=== PATIENT | male | born 1935 | race Hispanic/Latino ===

== ENCOUNTER → 2018-09-26 | Day surgery (SDC) | payer MEDICARE ==
[2018-09-22 12:03] LABS: BASOPHILS % 0.2 % (0.0-1.0); EOSINOPHILS # (AUTO) 0.1 (0.0-0.4); EOSINOPHILS % 1.4 % (0.0-6.0); HEMATOCRIT 37.1 % (38.2-49.6); HEMOGLOBIN 12.5 g/dL (14.0-18.0); LYMPHOCYTES # (AUTO) 1.6 (1.0-3.2); LYMPHOCYTES % 28.9 % (18.0-39.1); MEAN CORPUSCULAR HEMOGLOBIN 28.9 pg (28-32); MEAN CORPUSCULAR HGB CONC 33.7 g/dL (31-35); MEAN CORPUSCULAR VOLUME 85.9 fL (81-99); MONOCYTES # (AUTO) 0.4 (0.2-0.8); MONOCYTES % 7.8 % (4.4-11.3); NEUTROPHILS # (AUTO) 3.4 (2.1-6.9); NEUTROPHILS % 61.3 % (38.7-80.0); PLATELET COUNT 192 x10e3/uL (140-360); RED BLOOD COUNT 4.32 x10e6/uL (4.3-5.7); RED CELL DISTRIBUTION WIDTH 13.2 % (11.7-14.4)
[2018-09-22 12:21] LABS: ANION GAP 12.2 mmol/L (8-16); BLOOD UREA NITROGEN 14 mg/dL (7-26); BUN/CREATININE RATIO 14 (6-25); CALCIUM 8.7 mg/dL (8.4-10.2); CARBON DIOXIDE 29 mmol/L (22-29); CHLORIDE 103 mmol/L (98-107); EST GLOMERULAR FILTRATION RATE > 60 ML/MIN (60-); GLUCOSE 101 mg/dL (74-118); POTASSIUM 3.2 mmol/L (3.5-5.1); SODIUM 141 mmol/L (136-145)
--- NOTE | 2018-09-22 12:55 | Diagnostic Imaging Report ---
EXAMINATION: PA and lateral views of the chest. COMPARISON: Chest two views 04/21/2015 CLINICAL HISTORY: Preop for finger surgery DISCUSSION: Lines/tubes: None. Lungs: The lungs are well inflated and clear. There is no evidence of pneumonia or pulmonary edema. Pleura: There is no pleural effusion or pneumothorax. Heart and mediastinum: Cardiomediastinal silhouette is unremarkable. Pulmonary vasculature is normal. Bones and soft tissues: No acute bony abnormalities. Degenerative changes in the thoracic spine IMPRESSION: No acute cardiopulmonary abnormalities. Signed by: Dr. Sundar Tavares M.D. on 09/22/2018 12:52 PM
[~2018-09-26] MED LIST: BUPIVACAINE 0.25% 30ML SDV INJ ONE; CEFAZOLIN SOD 1 GM/D5W 50ML 50 ML IV ONE; DEXAMETHASONE SOD PHOS INJ 4 MG/ML VIAL ONE; FENTANYL CITRATE/PF 100MCG/2 ML INJ ONE; FINASTERIDE5 MG PO; FLOMAX0.4 MG PO; HYDROCHLOROTHIA25 MG PO; LACTULOSE20 GM/30 M PO; LIDOCAINE HCL 2% LOCAL INJ 5 ML SDV VIAL INJ ONE; LOVASTATIN20 MG PO; ONDANSETRON HCL INJ 2 MG/ML VIAL ONE; PROPOFOL IV EMULSION 10 MG/ML 20 ML VIAL ONE; SEVOFLURANE INHAL SOLN 250 ML PEN BTL ONE
--- OUTSIDE RECORDS SUMMARY | 2018-09-26 05:11 | XMS REPORT ---
Author [facility] Address Unknown Phone Unavailable Care Team Providers Care Dog Warden Name Role Phone JASON NIX Unavailable Unavailable Problems This patient has no known problems. Allergies, Adverse Reactions, Alerts This patient has no known allergies or adverse reactions. Medications This patient has no known medications. Results Test Description Test Time Test Comments Text Results Atomic Results Result Comments CHEST 2 VIEWS 2018-09-22 12:51:00 [place] [id number] Patient Name: STACIE SHAW MR #: [id number] : 1935 Age/Sex: 83/M Req #: [id number] Adm Physician: Ordered by: JASON NIX MD Report #: [id number] Location: OR Room/Bed: Procedure: [id number] DX/CHEST 2 VIEWS Exam Date: 09/22/18 Exam Time: 1220 REPORT STATUS: Signed EXAMINATION: PA and lateral views of the chest. VICK RISON: Chest two views 04/21/2015 CLINICAL HISTORY: Preop for finger surgery DISCUSSION: Lines/tubes: None. Lungs: The lungs are well inflated and clear. There is no evidence of pneumonia or pulmonary edema. Pleura: There is no pleural effusion or pneumothorax. Heart and mediastinum: Cardiomediastinal silhouette is unremarkable. Pulmonary vasculature is normal. Bones and soft tissues: No acute bony abnormalities. Degenerative changes in the thoracic spine IMPRESSION: No acute cardiopulmonary abnormalities. Signed by: Dr. Stacie Holland M.D. on 09/22/2018 12:52 PM Dictated By: STACIE HOLLAND MD 52 Transcribed By: STEFANI on 09/22/181251 COPY TO: JASON NIX MD
--- NOTE | 2018-09-26 08:58 | Operative Report ---
DATE OF PROCEDURE: September 26, 2018 QUALITY CONTROL CHECKER: Leon Brody PA-C The patient was brought to the operating room for induction of anesthesia. Throughout this case, my PA's assistance was necessary for retraction of soft tissue and positioning of the extremity. This allows for efficient and technically successful execution of the operation and is considered medically necessary. PREOPERATIVE DIAGNOSIS: Left 3rd trigger finger. POSTOPERATIVE DIAGNOSIS: Left 3rd trigger finger. PROCEDURE: Release of left 3rd trigger finger. 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 He has failed conservative management and would like to proceed with definitive intervention. The risks and benefits of the procedure have been discussed. He states he understands and wishes to proceed. DESCRIPTION OF PROCEDURE: The patient was brought to the operating room and placed under general anesthetic. His left upper extremity was prepped and draped in a sterile manner. A preoperative time out was performed. The extremity was exsanguinated and a proximal tourniquet was inflated to 250 mmHg. A transverse incision just distal to the distal palmar crease was made. Blunt dissection was carried down to expose the A1 jonah. Care was taken to avoid any injuries to the neurovascular bundles. The jonah was released with a 15 blade surgical knife. The release was completed with a pair of tenotomy scissors. The tendon was retracted from the wound. There was no further triggering. There was some mild to moderate fraying of the tendon. The wound was irrigated and closed with 2 interrupted nylon stitches. About 3 mL of 0.25% Marcaine without epinephrine were injected around the incision. A sterile bandage was applied. The patient was extubated and transported to the recovery room in stable condition. Job#: [id number]
[2018-09-26 09:05] VITALS: BP 150/72
== END | disposition home or self-care (01) ==
LOC: OR 05:08
PROVIDERS: ATTEND Specialist
DX: M65.332 Trigger finger, left middle finger (principal); I10 Essential (primary) hypertension; E78.5 Hyperlipidemia, unspecified; Z01.810 Encounter for preprocedural cardiovascular examination; Z01.812 Encounter for preprocedural laboratory examination; Z01.818 Encounter for other preprocedural examination
CPT/HCPCS: 36415; 71046; 80048; 84132; 85025; 93005; J0690; J1100; J2001; J2405

== ENCOUNTER 2021-03-23 11:01 | Observation (INO) | payer MEDICARE ==
[2021-03-19 11:32] LABS: BASOPHILS % 0.3 % (0.0-1.0); EOSINOPHILS # (AUTO) 0.1 (0.0-0.4); EOSINOPHILS % 1.9 % (0.0-6.0); HEMATOCRIT 34.2 % (38.2-49.6); HEMOGLOBIN 11.2 g/dL (14.0-18.0); LYMPHOCYTES % 29.4 % (18.0-39.1); MEAN CORPUSCULAR HEMOGLOBIN 28.4 pg (28-32); MEAN CORPUSCULAR HGB CONC 32.7 g/dL (31-35); MEAN CORPUSCULAR VOLUME 86.8 fL (81-99); MONOCYTES # (AUTO) 0.5 (0.2-0.8); MONOCYTES % 7.4 % (4.4-11.3); NEUTROPHILS # (AUTO) 4.1 (2.1-6.9); NEUTROPHILS % 60.6 % (38.7-80.0); PLATELET COUNT 211 x10e3/uL (140-360); RED BLOOD COUNT 3.94 x10e6/uL (4.3-5.7); RED CELL DISTRIBUTION WIDTH 13.6 % (11.7-14.4)
[2021-03-19 12:05] LABS: ANION GAP 13.4 mmol/L (8-16); CALCIUM 8.9 mg/dL (8.4-10.2); CREATININE, SERUM 1.01 mg/dL (0.72-1.25); POTASSIUM 3.4 mmol/L (3.5-5.1)
[~2021-03-23] VITALS: Ht 167.6 cm; Wt 68.0 kg
[~2021-03-23 11:01] MED LIST changes: -BUPIVACAINE 0.25% 30ML SDV INJ ONE; -CEFAZOLIN SOD 1 GM/D5W 50ML 50 ML IV ONE; -DEXAMETHASONE SOD PHOS INJ 4 MG/ML VIAL ONE; -FENTANYL CITRATE/PF 100MCG/2 ML INJ ONE; -LIDOCAINE HCL 2% LOCAL INJ 5 ML SDV VIAL INJ ONE; +NAPROXEN250 MG PO; -ONDANSETRON HCL INJ 2 MG/ML VIAL ONE; -PROPOFOL IV EMULSION 10 MG/ML 20 ML VIAL ONE; +ROPIVACAINE 246.25 MG, EPINEPHRINE HCL 1:1000 1ML 0.5 MG, CLONIDINE HCL 0.08 MG, KETORO... INJ ONE; -SEVOFLURANE INHAL SOLN 250 ML PEN BTL ONE; +SODIUM CHLORIDE 0.9% 500ML 500 ML ONE; +TRANEXAMIC ACID 1,000 MG/10 ML ML ONE; +Vancomycin IV 1,000 MG ONE
[2021-03-23] MEDS ORDERED: CELECOXIB 200 MG CAP ONE (11:27)
[2021-03-23] MEDS ORDERED: DEXAMETHASONE SOD PHOS 10 MG/1 ML VIAL ONE (11:27)
[2021-03-23] MEDS ORDERED: SODIUM CHLORIDE 0.9% 50ML 100 ML ONE (11:28)
[2021-03-23] MEDS ORDERED: GABAPENTIN 300 MG CAP ONE (11:28)
[2021-03-23] MEDS ORDERED: Vancomycin IV 500 MG ONE (12:58)
[2021-03-23] MEDS ORDERED: HYDROCODONE/APAP 7.5MG-325MG 1 EA TAB PO PRN (13:15)
[2021-03-23] MEDS ORDERED: DIPHENHYDRAMINE HCL INJ 50 MG/ML VIAL IV PRN (13:15)
[2021-03-23] MEDS ORDERED: HYDROCODONE/APAP 5MG-325MG TAB PO PRN (13:15)
[2021-03-23] MEDS ORDERED: KETOROLAC TROMETHAMINE 30 MG/ML VIAL IV PRN (13:15)
[2021-03-23] MEDS ORDERED: DOCUSATE SODIUM 100 MG CAP PO PRN (13:15)
[2021-03-23] MEDS ORDERED: ONDANSETRON HCL INJ 2MG/ML 2ML 2 MG/ML VIAL IV PRN (13:15)
[2021-03-23] MEDS ORDERED: ACETAMINOPHEN 650 MG SUPP PR PRN (13:15)
[2021-03-23] MEDS ORDERED: POVIDONE IODINE 0.05% 0.05 % ML PO ONE (13:25)
[2021-03-23] MEDS ORDERED: LIDOCAINE HCL 2% LOCAL INJ 5 ML SDV VIAL INJ ONE (13:25)
[2021-03-23] MEDS ORDERED: PROPOFOL IV EMULSION 10 MG/ML 20 ML VIAL ONE (13:25)
[2021-03-23] MEDS ORDERED: DEXAMETHASONE SOD PHOS INJ 4 MG/ML VIAL ONE (13:25)
[2021-03-23] MEDS ORDERED: ONDANSETRON HCL INJ 2MG/ML 2ML 2 MG/ML VIAL ONE (13:25)
[2021-03-23] MEDS ORDERED: SEVOFLURANE INHAL SOLN 250 ML PEN BTL ONE (13:25)
[2021-03-23] MEDS ORDERED: FENTANYL CITRATE/PF 100MCG/2 ML INJ ONE (13:49)
[2021-03-23] MEDS ORDERED: MIDAZOLAM HCL 2 MG/2 ML VIAL ONE (13:49)
[2021-03-23] MEDS ORDERED: LIDOCAINE 2% /EPINEPHRINE 20 ML SDV INJ ONE (13:55)
[2021-03-23] MEDS ORDERED: ROPIVACAINE 0.5% 5 MG/ML 30 ML SDV ONE (13:55)
[2021-03-23] MEDS ORDERED: ACETAMINOPHEN 1000 MG/100 ML 100 ML IV ONE (14:40)
[2021-03-23 15:40] VITALS: BP 126/88
[2021-03-23 15:41] VITALS: BP 126/88
[2021-03-23] MEDS: ASPIRIN 325 MG TAB PO SCH (16:32)
[2021-03-23] MEDS: CELECOXIB 200 MG CAP PO SCH (16:32)
[2021-03-23 17:03] VITALS: BP 139/87
[2021-03-23 20:00] VITALS: BP 137/71
[2021-03-23] MEDS: SODIUM CHLORIDE 0.9% 1000ML 1,000 ML IV SCH (20:28)
[2021-03-23] MEDS: Cefazolin 1 GM in SODIUM CHLORIDE 0.9% 50ML 50 ML IV SCH (20:29)
[2021-03-23] MEDS ORDERED: ZOLPIDEM TARTRATE 5 MG TAB PO PRN (21:00)
[2021-03-24] VITALS: BP 144/64
[2021-03-24 04:00] VITALS: BP 133/65
[2021-03-24 05:06] LABS: HEMOGLOBIN 11.4 g/dL (14.0-18.0)
[2021-03-24] MEDS: SODIUM CHLORIDE 0.9% 1000ML 1,000 ML IV SCH (05:07)
[2021-03-24] MEDS: Cefazolin 1 GM in SODIUM CHLORIDE 0.9% 50ML 50 ML IV SCH (05:17)
[2021-03-24] MEDS: ASPIRIN 325 MG TAB PO SCH (08:44)
[2021-03-24] MEDS: CELECOXIB 200 MG CAP PO SCH (08:44)
[2021-03-24] MEDS ORDERED: HYDROCHLOROTHIAZIDE 25 MG TAB PO SCH (09:00)
[2021-03-24 09:01] VITALS: BP 144/66
[2021-03-24 10:35] VITALS: BP 144/66
[2021-03-24 11:50] VITALS: BP 125/63
[2021-03-24] MEDS ORDERED: ONDANSETRON HCL 4 MG ORAL DISINTEGRATING TAB PO PRN (12:45)
[2021-03-24] MEDS ORDERED: ACETAMINOPHEN 1000 MG/100 ML IV PRN (13:15)
[2021-03-24] MEDS ORDERED: TAMSULOSIN HCL 0.4 MG CAP PO SCH (21:00)
== END 2021-03-24 13:45 | disposition home health service (06) ==
LOC: OR 11:01 → PACU V 13:13 → MED/SURG 15:19
PROVIDERS: ADMIT Specialist; ATTEND Specialist
DX: M17.12 Unilateral primary osteoarthritis, left knee (principal); I10 Essential (primary) hypertension; Z01.812 Encounter for preprocedural laboratory examination; Z01.818 Encounter for other preprocedural examination; E78.5 Hyperlipidemia, unspecified; N40.0 Benign prostatic hyperplasia without lower urinary tract symptoms; D64.9 Anemia, unspecified
CPT/HCPCS: 27447; 36415 ×2; 71046; 73560; 80048; 85014; 85018; 85025; 86850; 86900; 86920; 97116 ×2; 97139; 97161; 97530; C1713 ×4; C1776; G0378 ×2; J0131; J0171; J0690 ×2; J1100 ×2; J1885; J2001 ×2; J2250; J2405; J2704; J2795; J3010; J3370; J7030 ×2; J7040

== ENCOUNTER 2024-01-09 19:12 | Emergency (ER) | payer MEDICARE ==
[~2024-01-09] VITALS: Ht 172.7 cm; Wt 65.8 kg
[~2024-01-09 19:12] MED LIST changes: +BENZONATATE100 MG PO; +ONDANSETRON ODT4 MG PO; +PROTONIX20 MG PO; -ROPIVACAINE 246.25 MG, EPINEPHRINE HCL 1:1000 1ML 0.5 MG, CLONIDINE HCL 0.08 MG, KETORO... INJ ONE; -SODIUM CHLORIDE 0.9% 500ML 500 ML ONE; -TRANEXAMIC ACID 1,000 MG/10 ML ML ONE; -Vancomycin IV 1,000 MG ONE
[2024-01-09] MEDS ORDERED: LACTULOSE SYRUP 20 GM/30 ML UDC PO ONE (19:45)
[2024-01-09] MEDS ORDERED: LACTULOSE20 GM/30 M PO (22:09)
[2024-01-09] MEDS: MAGNESIUM HYDROXIDE 30 ML UDC PO ONE (22:17)
[2024-01-09] MEDS: LACTULOSE SYRUP 20 GM/30 ML UDC PO ONE (22:18)
[2024-01-09 22:23] VITALS: O2SAT 96
== END 2024-01-09 22:23 | disposition home or self-care (01) ==
LOC: ER 19:39
DX: R10.33 Periumbilical pain (principal); K59.00 Constipation, unspecified; I10 Essential (primary) hypertension; E78.5 Hyperlipidemia, unspecified
CPT/HCPCS: 74019; 99283